=== PATIENT | female | born 1950 | race African-American/Black ===

== ENCOUNTER → 2017-09-27 | Outpatient (CLI) | payer OTHER ==
--- NOTE | 2017-09-27 12:38 | KCIC ---
Bone mineral density exam History: Postmenopausal Comparison: None Findings: Bone mineral density examination utilizing DEXA was performed. Left hip bone mineral density of 0.903 g/cm2 corresponds with a T score -0.3, Z score 0.2. The bone mineral density of the lumbar spine was 1.353 g/cm2 which corresponds with a T-score of 2.8, Z score 3.9. By [employer] on Osteoporosis criteria, a T score of 0 to-1 SD is considered to be within normal limits. A T score of -1 to -2.5 SD is considered osteopenia. A T score less than -2.5 SD is considered osteoporosis Impression: 1. There is normal bone density of the left hip and the lumbar spine. Electronically signed by: Edis Segura MD (09/27/2017 12:35 PM) [id number]
--- NOTE | 2017-09-27 13:44 | KCIC ---
DATE: 09/27/2017. EXAM: MAMMO REMA SCREENING BILATERAL. HISTORY: Routine mammographic screening. COMPARISON: None available. This is interpreted as a baseline study.. This study was interpreted with the benefit of Computerized Aided Detection (CAD). FINDINGS: The breast parenchyma shows scattered fibroglandular densities. Breast parenchyma level B.. There are no suspicious masses, microcalcifications or architectural distortion. A small density lateral to the right nipple appears parenchymal. BI-RADS CATEGORY: 1 NEGATIVE. RECOMMENDED FOLLOW-UP: 12M 12 MONTH FOLLOW-UP. PQRS compliance statement: Patient information was entered into a reminder system with a target due date 09/27/2018 for the next mammogram. Mammography is a sensitive method for finding small breast cancers, but it does not detect them all and is not a substitute for careful clinical examination. A negative mammogram does not negate a clinically suspicious finding and should not result in delay in biopsying a clinically suspicious abnormality. "Our facility is accredited by the [employer] Mammography Program."
== END | disposition home or self-care (01) ==
LOC: KCIC MAMMO 11:43
PROVIDERS: ATTEND Family Medicine
DX: Z12.31 Encounter for screening mammogram for malignant neoplasm of breast (principal); Z78.0 Asymptomatic menopausal state
CPT/HCPCS: 77063; 77080; G0202; 77067